=== PATIENT | female | born 1965 | race African-American/Black ===

== ENCOUNTER 2018-08-22 19:27 | Observation (INO) | payer OTHER ==
[2018-08-22] MEDS ORDERED: SODIUM CHLORIDE 0.9% 500 ML 500 ML IV STA (20:51)
[2018-08-22] MEDS ORDERED: LABETALOL 5 MG/ML VIAL MDV IVP STA ×2 (21:33→23:05)
--- NOTE | 2018-08-22 21:34 | ED ---
General Adult HPI - General Source: patient Mode of arrival: ambulatory Limitations: no limitations <Daneyll Drake - Last Filed: 08/23/18 01:03> <Sunitha Krishnan - Last Filed: 08/28/18 02:51> - General Chief complaint: ENT Stated complaint: Lt arm pain-[facility] Time Seen by Provider: 08/22/18 20:00 - History of Present Illness Initial comments: 53-year-old female patient presents to the emergency department today for evaluation of left upper arm pain and throat pain. Patient states that she has had the left upper arm pain intermittently over the last couple of days. States this pain is not related to exertion or use of the arm. States that today she woke up and she was having a discomfort in her throat. States it feels different when it sore from illness. She denies any cough or nasal congestion. She denies any chest pain, shortness of breath, nausea, vomiting, or sweats. Patient does have elevated blood pressure at triage, states that she has no history of high blood pressure. She has family history of coronary artery disease, both parents are now after cardiac events one at age 23 , the other 56. She denies any use of cigarettes. Patient denies any recent rash, fever, chills, abdominal pain, diarrhea, constipation, back pain, numbness , tingling, dizziness, weakness, hematuria, dysuria, urinary urgency, urinary frequency, headache, visual changes, or any other complaints. (Danyell Drake) - Related Data Allergies Allergy/AdvReac Type Severity Reaction Status Date / Time No Known Allergies Allergy Verified 08/23/18 08:57 Review of Systems ROS Other: All systems not noted in ROS Statement are negative. <Danyell Drake - Last Filed: 08/23/18 01:03> ROS Other: All systems not noted in ROS Statement are negative. <Sunitha Krishnan - Last Filed: 08/28/18 02:51> ROS Statement: Those systems with pertinent positive or pertinent negative responses have been documented in the HPI. Past Medical History Past Medical History: No Reported History History of Any Multi-Drug Resistant Organisms: None Reported Past Surgical History: No Surgical Hx Reported Past Psychological History: No Psychological Hx Reported Smoking Status: Never smoker Past Alcohol Use History: None Reported Past Drug Use History: Unable to Obtain <BantleDanyell M - Last Filed: 08/23/18 01:03> General Exam Limitations: no limitations General appearance: alert, in no apparent distress, other (Physical well- developed, well-nourished adult female patient in no acute distress. Vital signs upon presentation temperature 98.2F, pulse 93, respirations 18, blood pressure 182/125, pulse ox 100% on room air.) Eye exam: Present: normal appearance, PERRL, EOMI. Absent: scleral icterus, conjunctival injection, periorbital swelling ENT exam: Present: normal exam, normal oropharynx, mucous membranes moist Respiratory exam: Present: normal lung sounds bilaterally. Absent: respiratory distress, wheezes, rales, rhonchi, stridor Cardiovascular Exam: Present: regular rate, normal rhythm, normal heart sounds. Absent: systolic murmur, diastolic murmur, rubs, gallop, clicks GI/Abdominal exam: Present: soft, normal bowel sounds. Absent: distended, tenderness, guarding, rebound, rigid Neurological exam: Present: alert, oriented X3, CN II-XII intact Psychiatric exam: Present: normal affect, normal mood Skin exam: Present: warm, dry, intact, normal color. Absent: rash <RemediosJuarez williamsonina M - Last Filed: 08/23/18 01:03> Vital Signs 08/22/18 08/22/18 08/22/18 19:34 21:28 21:53 Temperature 98.2 F Pulse Rate 93 96 79 Respiratory 18 16 16 Rate Blood Pressure 182/125 203/118 194/110 Blood Pressure [Left Arm] O2 Sat by Pulse 100 100 98 Oximetry 08/22/18 08/22/18 08/22/18 22:13 22:41 23:28 Temperature Pulse Rate 81 74 75 Respiratory 15 15 15 Rate Blood Pressure 200/121 189/105 188/119 Blood Pressure [Left Arm] O2 Sat by Pulse 100 100 100 Oximetry 08/22/18 08/23/18 08/23/18 23:36 00:00 00:14 Temperature Pulse Rate 81 79 72 Respiratory 15 15 18 Rate Blood Pressure 156/102 174/112 172/103 Blood Pressure [Left Arm] O2 Sat by Pulse 100 100 100 Oximetry 08/23/18 08/23/18 08/23/18 01:50 02:23 03:40 Temperature 98.0 F Pulse Rate 90 79 Respiratory 16 20 Rate Blood Pressure 174/114 151/103 176/113 Blood Pressure [Left Arm] O2 Sat by Pulse 99 100 Oximetry 08/23/18 08/23/18 08/23/18 03:50 04:00 04:10 Temperature Pulse Rate 78 73 79 Respiratory Rate Blood Pressure 174/113 174/113 164/111 Blood Pressure [Left Arm] O2 Sat by Pulse 99 98 99 Oximetry 08/23/18 08/23/18 08/23/18 04:20 04:27 04:30 Temperature 98.8 F Pulse Rate 90 Respiratory 14 Rate Blood Pressure 180/115 180/115 Blood Pressure 185/113 [Left Arm] O2 Sat by Pulse 96 99 Oximetry 08/23/18 04:40 Temperature Pulse Rate 74 Respiratory Rate Blood Pressure 180/115 Blood Pressure [Left Arm] O2 Sat by Pulse 98 Oximetry EKG Findings - EKG Comments: EKG Findings:: EKG obtained at 2108 shows normal sinus rhythm with a sinus arrhythmia, nonspecific T-wave abnormality. Ventricular rate is 80, HI interval 150, QRS duration 80, QT 378, QTC 435. No evidence of ST elevation or depression. No previous EKGs on file for comparison. <Danyell Drake - Last Filed: 08/23/18 01:03> Medical Decision Making - Lab Data Result diagrams: 08/22/18 21:18 08/22/18 21:18 - Radiology Data Radiology results: report reviewed, image reviewed <Danyell Drake - Last Filed: 08/23/18 01:03> - Lab Data Result diagrams: 08/22/18 21:18 08/24/18 04:36 <Sunitha Krishnan - Last Filed: 08/28/18 02:51> - Medical Decision Making 53-year-old female patient presented to the emergency department today for evaluation of left arm and neck pain. Patient has had this pain intermittently over the last couple of days. Physical examination is unremarkable. Patient was quite hypertensive in the ER with blood pressure as high as 203/118. She was given multiple doses of labetalol and a dose of hydralazine, blood pressure is minimally improved. Patient does have extensive family history of coronary artery disease and cardiac . Given family history and elevated blood pressure does felt she would benefit from inpatient admission for cardiology evaluation especially since she does not have a primary care physician for follow-up. I did discuss findings and results with the patient. My attending Dr. Krishnan did speak to the son physician on-call who accepts admission. (Danyell Drake) I was available for consultation in the emergency department. The history and physical exam were done by the midlevel provider. I was consulted for this patient's care. I reviewed the case with the midlevel provider and based on their presentation of the patient, I agree with the assessment, medical decision making and plan of care as documented. (Sunitha Krishnan) - Lab Data Lab Results 08/22/18 08/22/18 08/22/18 Range/Units 21:18 21:18 21:18 WBC 5.5 (3.8-10.6) k/uL RBC 4.29 (3.80-5.40) m/uL Hgb 13.0 (11.4-16.0) gm/dL Hct 41.7 (34.0-46.0) % MCV 97.1 (80.0-100.0) fL MCH 30.2 (25.0-35.0) pg MCHC 31.1 (31.0-37.0) g/dL RDW 13.1 (11.5-15.5) % Plt Count 233 (150-450) k/uL Neutrophils % 40 % Lymphocytes % 49 % Monocytes % 7 % Eosinophils % 2 % Basophils % 1 % Neutrophils # 2.2 (1.3-7.7) k/uL Lymphocytes # 2.7 (1.0-4.8) k/uL Monocytes # 0.4 (0-1.0) k/uL Eosinophils # 0.1 (0-0.7) k/uL Basophils # 0.0 (0-0.2) k/uL PT (9.0-12.0) sec INR (<1.2) APTT (22.0-30.0) sec Sodium 143 (137-145) mmol/L Potassium 4.1 (3.5-5.1) mmol/L Chloride 109 H (98-107) mmol/L Carbon Dioxide 24 (22-30) mmol/L Anion Gap 10 mmol/L BUN 14 (7-17) mg/dL Creatinine 1.01 (0.52-1.04) mg/dL Est GFR (CKD-EPI)AfAm 75 (>60 ml/min/1.73 sqM) Est GFR (CKD-EPI)NonAf 65 (>60 ml/min/1.73 sqM) Glucose 99 (74-99) mg/dL Calcium 10.8 H (8.4-10.2) mg/dL Magnesium 2.2 (1.6-2.3) mg/dL Total Bilirubin 0.7 (0.2-1.3) mg/dL AST 47 H (14-36) U/L ALT 59 H (9-52) U/L Alkaline Phosphatase 78 (38-126) U/L Total Creatine Kinase 146 H (30-135) U/L CK-MB (CK-2) 1.2 (0.0-2.4) ng/mL CK-MB (CK-2) Rel Index 0.8 Troponin I <0.012 (0.000-0.034) ng/mL Total Protein 8.4 H (6.3-8.2) g/dL Albumin 4.5 (3.5-5.0) g/dL 08/22/18 Range/Units 21:18 WBC (3.8-10.6) k/uL RBC (3.80-5.40) m/uL Hgb (11.4-16.0) gm/dL Hct (34.0-46.0) % MCV (80.0-100.0) fL MCH (25.0-35.0) pg MCHC (31.0-37.0) g/dL RDW (11.5-15.5) % Plt Count (150-450) k/uL Neutrophils % % Lymphocytes % % Monocytes % % Eosinophils % % Basophils % % Neutrophils # (1.3-7.7) k/uL Lymphocytes # (1.0-4.8) k/uL Monocytes # (0-1.0) k/uL Eosinophils # (0-0.7) k/uL Basophils # (0-0.2) k/uL PT 10.2 (9.0-12.0) sec INR 0.9 (<1.2) APTT 25.3 (22.0-30.0) sec Sodium (137-145) mmol/L Potassium (3.5-5.1) mmol/L Chloride (98-107) mmol/L Carbon Dioxide (22-30) mmol/L Anion Gap mmol/L BUN (7-17) mg/dL Creatinine (0.52-1.04) mg/dL Est GFR (CKD-EPI)AfAm (>60 ml/min/1.73 sqM) Est GFR (CKD-EPI)NonAf (>60 ml/min/1.73 sqM) Glucose (74-99) mg/dL Calcium (8.4-10.2) mg/dL Magnesium (1.6-2.3) mg/dL Total Bilirubin (0.2-1.3) mg/dL AST (14-36) U/L ALT (9-52) U/L Alkaline Phosphatase (38-126) U/L Total Creatine Kinase (30-135) U/L CK-MB (CK-2) (0.0-2.4) ng/mL CK-MB (CK-2) Rel Index Troponin I (0.000-0.034) ng/mL Total Protein (6.3-8.2) g/dL Albumin (3.5-5.0) g/dL - Radiology Data Two-view x-ray of the chest is obtained. Heart media's enema normal. Lungs are clear. Diaphragm is normal. Bony thorax is normal. There are chest leads. Impression by Dr. Osborn shows normal chest. (Danyell Drake) Disposition Decision to Admit Reason: Admit from EC Decision Date: 08/23/18 Decision Time: 01:11 <Danyell Drake - Last Filed: 08/23/18 01:03> <Sunitha Krishnan - Last Filed: 08/28/18 02:51> Clinical Impression: Hypertensive emergency, Anginal equivalent Disposition: ADMITTED IP TO THIS [facility] Condition: Good
[2018-08-22 21:41] LABS: INR 0.9 (<1.2); Partial Thromboplastin Time 25.3 sec (22.0-30.0); Prothrombin Time 10.2 sec (9.0-12.0)
[2018-08-22 21:43] LABS: Albumin 4.5 g/dL (3.5-5.0); Calcium 10.8 mg/dL (8.4-10.2); Magnesium 2.2 mg/dL (1.6-2.3); Potassium 4.1 mmol/L (3.5-5.1); Total Bilirubin 0.7 mg/dL (0.2-1.3); Total Protein 8.4 g/dL (6.3-8.2)
[2018-08-22 22:08] LABS: Creatine Kinase 146 U/L (30-135)
[2018-08-22 22:19] LABS: Creatine Kinase MB 1.2 ng/mL (0.0-2.4); Troponin I <0.012 ng/mL (0.000-0.034)
--- NOTE | 2018-08-22 22:28 | XR ---
EXAMINATION TYPE: XR chest 2V DATE OF EXAM: 08/22/2018 COMPARISON: NONE HISTORY: Left arm pain TECHNIQUE: Frontal and lateral views of the chest are obtained. FINDINGS: Heart and mediastinum are normal. Lungs are clear. Diaphragm is normal. Bony thorax is nor mal. There are chest leads. IMPRESSION: Normal chest
[2018-08-22 22:32] LABS: Basophils % (A) 1 %; Eosinophils # (A) 0.1 k/uL (0-0.7); Eosinophils % (A) 2 %; HCT 41.7 % (34.0-46.0); Lymphocytes # (A) 2.7 k/uL (1.0-4.8); Lymphocytes % (A) 49 %; MCH 30.2 pg (25.0-35.0); MCHC 31.1 g/dL (31.0-37.0); MCV 97.1 fL (80.0-100.0); Mean Platelet Volume 6.2; Monocytes # (A) 0.4 k/uL (0-1.0); Monocytes % (A) 7 %; Neutrophils # (A) 2.2 k/uL (1.3-7.7); Neutrophils % (A) 40 %; Platelet Count 233 k/uL (150-450); RBC 4.29 m/uL (3.80-5.40); RDW 13.1 % (11.5-15.5); WBC 5.5 k/uL (3.8-10.6)
[2018-08-23] MEDS ORDERED: hydrALAZINE HCL 20 MG/ML 1 ML VIAL IVP STA (00:09)
[2018-08-23] MEDS ORDERED: NITROGLYCERIN SL TABS 0.4 MG TAB SUBLINGUAL PRN (01:12)
[2018-08-23] MEDS ORDERED: ENALAPRILAT 1.25 MG/ML 1 ML VIAL IVP PRN (01:15)
[2018-08-23 03:59] LABS: Creatine Kinase 134 U/L (30-135)
[2018-08-23 04:12] LABS: Troponin I <0.012 ng/mL (0.000-0.034)
[2018-08-23 05:15] LABS: Glucose,Whole Blood 91 mg/dL (75-99)
[2018-08-23 05:24] VITALS: BMI 35.7
[2018-08-23] MEDS ORDERED: NALOXONE 0.4 MG/ML 1 ML VIAL IV PRN (06:48)
--- NOTE | 2018-08-23 06:59 | P.HPIM ---
History of Present Illness H&P Date: 08/23/18 Chief Complaint: chocking sensation 53-year-old female with no significant past medical history Patient presented to the hospital due to choking sensation in her throat that she woke up feeling it. She also reported couple day history of discomfort in her left arm not related to any activity, denies any trauma. Patient otherwise denies any other symptoms. She denies any symptoms of upper respiratory infection denies any fevers or chills denies any similar symptoms in the past denies any chest pain or trouble breathing denies any nausea vomiting dizziness lightheadedness denies any focal neurologic deficits. In the ED she was found to have elevated blood pressure with systolic in the 200 range. She has strong family history of premature cardiac disease. She was admitted for blood pressure management and cardiac monitoring Review of Systems Pertinent positives as noted in HPI. All other systems were reviewed and are negative Past Medical History Past Medical History: No Reported History History of Any Multi-Drug Resistant Organisms: None Reported Past Surgical History: No Surgical Hx Reported Past Psychological History: No Psychological Hx Reported Smoking Status: Never smoker Past Alcohol Use History: None Reported Past Drug Use History: Unable to Obtain Medications and Allergies Allergies Allergy/AdvReac Type Severity Reaction Status Date / Time No Known Allergies Allergy Verified 08/22/18 19:34 Physical Exam Vitals: Vital Signs Temp Pulse Resp BP BP Pulse Ox 08/23/18 06:40 68 7 L 147/85 08/23/18 06:20 74 7 L 149/85 08/23/18 06:00 76 14 198/120 08/23/18 05:40 73 12 198/120 08/23/18 05:20 73 9 L 185/113 08/23/18 05:10 79 17 185/113 08/23/18 05:02 82 32 H 08/23/18 04:40 74 180/115 98 08/23/18 04:30 90 180/115 99 08/23/18 04:27 98.8 F 14 185/113 96 08/23/18 04:20 180/115 08/23/18 04:10 79 164/111 99 08/23/18 04:00 73 174/113 98 08/23/18 03:50 78 174/113 99 08/23/18 03:40 79 20 176/113 100 08/23/18 02:23 151/103 08/23/18 01:50 98.0 F 90 16 174/114 99 08/23/18 00:14 72 18 172/103 100 08/23/18 00:00 79 15 174/112 100 08/22/18 23:36 81 15 156/102 100 08/22/18 23:28 75 15 188/119 100 08/22/18 22:41 74 15 189/105 100 08/22/18 22:13 81 15 200/121 100 08/22/18 21:53 79 16 194/110 98 08/22/18 21:28 96 16 203/118 100 08/22/18 19:34 98.2 F 93 18 182/125 100 Intake and Output 08/22/18 08/22/18 08/23/18 14:59 22:59 06:59 Intake Total 600 Output Total 0 Balance 600 Intake: Amount of Fluid Infused ( 600 ml) Output: Urine 0 Other: Weight 97.522 kg 97.45 kg Constitutional: No acute distress, conversant, pleasant Eyes: Anicteric sclerae, moist conjunctiva, no lid-lag Pupils equal round reactive to light ENMT: NC/AT Oropharynx clear, no erythema, exudates Neck: Supple, FROM, no masses, or JVD No carotid bruits No thyromegaly Lungs: Clear to auscultation Clear to percussion Normal respiratory effort, no accessory muscle use Cardiovascular: Heart regular in rate and rhythm, No murmurs, gallops, or rubs No peripheral edema Abdominal: Soft Nontender, no guarding, rebound or rigidity Abdomen moving with respiration Normoactive bowel sounds No hepatomegaly, No splenomegaly No palpable mass No abdominal wall hernia noted Skin: Normal temperature, tone, texture, turgor No induration No subcutaneous nodules No rash, lesions No ulcers Extremities: Pain in the left arm is not reproducible by palpation there is no visible abnormalities, range of motion is intact No digital cyanosis No clubbing Pedal pulses intact and symmetrical Radial pulses intact and symmetrical No calf tenderness Psychiatric: Alert and oriented to person, place and time Appropriate affect fair judgment Neuro Muscles Strength 5/5 in all 4 extremities Sensation to light touch grossly present throughout Cranial nerves II-XII grossly intact No focal sensory deficits Lymphatics: no palpable cervical or supraclavicular , or inguinal lymph nodes Results CBC & Chem 7: 08/22/18 21:18 08/22/18 21:18 Labs: Abnormal Lab Results - Last 24 Hours (Table) 08/22/18 08/22/18 Range/Units 21:18 21:18 Chloride 109 H (98-107) mmol/L Calcium 10.8 H (8.4-10.2) mg/dL AST 47 H (14-36) U/L ALT 59 H (9-52) U/L Total Creatine Kinase 146 H (30-135) U/L Total Protein 8.4 H (6.3-8.2) g/dL Thrombosis Risk Factor Assmnt - Choose All That Apply Any of the Below Risk Factors Present?: Yes Each Factor Represents 1 point: Age 41-60 years, Obesity (BMI >25) Other Risk Factors: No Other congenital or acquired thrombophilia - If yes, enter type in comment: No Thrombosis Risk Factor Assessment Total Risk Factor Score: 2 Thrombosis Risk Factor Assessment Level: Low Risk Assessment and Plan Assessment: 53-year-old female no significant past medical history admitted as observationwith anticipated length of stay last than 2 days due to hypertensive urgency.patient initially presented due to choking sensation was found to have for high blood pressure systolic in the 200s range. Plan: Hypertensive urgency Currently asymptomatic Blood pressure control target to lower MAP by 25% Start amlodipine and chlorthalidone in a.m. Cardiac monitoring Cardiac enzyme trending EKG unremarkable Hypercalcemia Asymptomatic Follow-up calcium level Check PTH Obesity Counseled left somewhat patient weight loss DVT prophylaxis heparin subcu 3 times a day Surrogate decision-maker: Patient's son CODE STATUS:*Full code Discussed with: Patient, ER, RN Anticipated discharge: Less than [address]: Home A total of *60* minutes was spent on the care of this complex patient more than 50% of the time was spent in counseling and care coordination.
[2018-08-23] MEDS: HEPARIN SODIUM,PORCINE 5,000 UNIT/ML 1 ML VIAL SQ SCH ×2 (08:22→17:41)
[2018-08-23] MEDS ORDERED: METOPROLOL TARTRATE 25 MG TAB PO SCH ×2 (09:00)
[2018-08-23] MEDS ORDERED: amLODIPine 10 MG TAB PO SCH (09:00)
[2018-08-23] MEDS ORDERED: LOSARTAN 50 MG TAB PO SCH (09:00)
[2018-08-23] MEDS ORDERED: CHLORTHALIDONE 25 MG TAB PO SCH (09:00)
[2018-08-23] MEDS ORDERED: LABETALOL 5 MG/ML VIAL MDV IVP PRN (09:04)
[2018-08-23] MEDS ORDERED: cloNIDine HCL 0.2 MG TAB PO STA (09:10)
[2018-08-23] MEDS ORDERED: LABETALOL 5 MG/ML VIAL MDV IVP STA (09:11)
[2018-08-23] MEDS: ASPIRIN 81 MG PO SCH (09:20)
[2018-08-23 10:15] LABS: Anion Gap 9 mmol/L; Blood Urea Nitrogen 11 mg/dL (7-17); Calcium 10.4 mg/dL (8.4-10.2); Carbon Dioxide 22 mmol/L (22-30); Chloride 112 mmol/L (98-107); Glucose 107 mg/dL (74-99); Potassium 4.4 mmol/L (3.5-5.1); Sodium 143 mmol/L (137-145)
[2018-08-23 10:26] LABS: Creatine Kinase 118 U/L (30-135)
[2018-08-23 10:39] LABS: Troponin I <0.012 ng/mL (0.000-0.034)
[2018-08-23 11:40] LABS: Appearance,Urine Clear (Clear); Bacteria,Urine Few /hpf; Bilirubin,Urine Negative (Negative); Blood,Urine Negative (Negative); Color,Urine Light Yellow; Glucose,Urine (UA) Negative (Negative); Ketones,Urine Negative (Negative); Leukocyte Esterase,Urine Moderate (Negative); Nitrite,Urine Negative (Negative); PH, Urine 7.5 (5.0-8.0); Protein,Urine Negative (Negative); RBC,Urine <1 /hpf (0-5); Specific Gravity,Urine 1.006 (1.001-1.035); Squamous Epithelial Cell,Urine <1 /hpf (0-4); Urobilinogen,Urine <2.0 mg/dL (<2.0); WBC,Urine 3 /hpf (0-5)
--- NOTE | 2018-08-23 11:50 | US ---
EXAMINATION TYPE: US kidneys/renal and bladder DATE OF EXAM: 08/23/2018 COMPARISON: NONE CLINICAL HISTORY: hypertension . HTN EXAM MEASUREMENTS: Right Kidney: 9.7 x 4.7 x 4.3 cm Left Kidney: 9.7 x 5.0 x 4.9 cm Right Kidney: no hydronephrosis or masses seen Left Kidney: no hydronephrosis or masses seen Bladder: wnl Bilateral Jets seen: yes IMPRESSION: NORMAL RENAL ULTRASOUND.
--- NOTE | 2018-08-23 14:14 | CONS ---
CONSULTATION Mrs. Helga Porter is a lady who does not take any medications on a regular basis. She has not seen a physician recently. 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 She came into the hospital mainly with complaints of having left arm and some throat discomfort. She called it as a feeling of tightness that she has had in the past. This is not exertion related symptoms. She does quite a bit of physical work. She works out every day. This is uncomfortable feeling in the throat and some left arm achy feeling. With these nondescript symptoms, she came in, but her blood pressure was quite elevated. She has been admitted to the hospital with a diagnosis of accelerated hypertension. Her pressure is still elevated when I saw her. She has no chest pain, shortness of breath or palpitation. She does not take any regular medications and has no allergies. PHYSICAL EXAMINATION: Blood pressure is 180/110, pulse rate is about 70 per minute regular HEENT unremarkable. Fundus was not examined by me. Neck is supple. No JVD. I do not hear a carotid bruit. Heart exam reveals S1, S2 heard normally without a rub murmur or gallop. Lungs are clear. Abdomen is soft, nontender. Lower extremities reveal normal pulses. No edema. Central nervous system is normal. EKG revealed a sinus mechanism with voltage criteria for LVH and nonspecific ST wave abnormality. LABORATORY DATA: Reveals that all 3 troponin levels are normal. Renal function is normal and hemoglobin is normal. IMPRESSION: 1. Accelerated hypertension. 2. Obesity. 3. Atypical pain in her throat and also left arm. RECOMMENDATIONS: I will 1st optimize blood pressure control. I am recommending that we decrease the aspirin to 81 mg daily, add losartan 100 mg daily, Lopressor 25 mg b.i.d., Norvasc will be 5 mg b.i.d. If the blood pressure remains high, I will give her labetalol 10 mg IV push and clonidine 0.2 mg p.o. b.i.d., perform echocardiogram tomorrow and based on the findings I will make further recommendations. I discussed my thoughts in detail with the patient. Thank you very much for the consult. MMODL / IJN: [id number] /
[2018-08-23] MEDS ORDERED: SODIUM CHLORIDE 0.9% 500 ML 500 ML IV ONE (15:00)
--- NOTE | 2018-08-23 15:00 | P.PN ---
Progress Note - Text Patient was seen and examined by me today. She was admitted to the hospital with hypertensive urgency. She is not known to have any diagnosis of essential hypertension in the past. She was admitted to the hospital and for an unclear reason to me she was started on 5 different medications for her blood pressure with maximum doses including losartan 100 mg, amlodipine 10 mg, clonidine 0.2 mg twice daily, chlorthalidone 25 mg, and metoprolol 25 mg twice daily. She also received IV labetalol and hydralazine in the emergency room. Her blood pressure bottomed from 200 systolic to 80 at this time. Patient is feeling fairly well and denies any dizziness or lightheadedness. I will go ahead and discontinue all of these blood pressure medication and keep her only on losartan 25 and chlorthalidone to be started tomorrow depending on her blood pressure trends throughout the day. We will give her one time bolus of 0.9 500 mL. Plan of care discussed with nursing staff.
[2018-08-23] MEDS ORDERED: cloNIDine HCL 0.2 MG TAB PO SCH (21:00)
[2018-08-23] MEDS ORDERED: amLODIPine 5 MG TAB PO SCH (21:00)
[2018-08-24] MEDS: HEPARIN SODIUM,PORCINE 5,000 UNIT/ML 1 ML VIAL SQ SCH ×2 (00:14→11:11)
[2018-08-24] MEDS ORDERED: ACETAMINOPHEN TAB 325 MG TAB PO PRN (00:22)
[2018-08-24 06:17] LABS: Calcium 10.3 mg/dL (8.4-10.2); Potassium 4.4 mmol/L (3.5-5.1)
[2018-08-24] MEDS ORDERED: ASPIRIN 325 MG TAB PO SCH (09:00)
[2018-08-24] MEDS ORDERED: LABETALOL 100 MG TAB PO SCH ×2 (09:00→10:00)
[2018-08-24] MEDS: ASPIRIN 81 MG PO SCH (11:11)
[2018-08-24 11:23] VITALS: RESP 15
[2018-08-24 12:04] VITALS: BP 118/82; PULSE 83; TEMP 98.1
--- NOTE | 2018-08-24 12:05 | ECHOF ---
Referral Reason:hypertensive emergency MEASUREMENTS -------- HEIGHT: 165.1 cm WEIGHT: 97.1 kg BP: 111/80 RVIDd: 3.0 cm (< 3.3) IVSd: 1.2 cm (0.6 - 1.1) LVIDd: 4.5 cm (3.9 - 5.3) LVPWd: 1.1 cm (0.6 - 1.1) IVSs: 1.7 cm LVIDs: 3.1 cm LVPWs: 1.6 cm LA Diam: 3.4 cm (2.7 - 3.8) LAESV Index (A-L): 27.21 ml/m Ao Diam: 3.0 cm (2.0 - 3.7) AV Cusp: 2.2 cm (1.5 - 2.6) MV EXCURSION: 11.540 mm (> 18.000) MV EF SLOPE: 65 mm/s (70 - 150) EPSS: 0.7 cm MV E Ramiro: 0.58 m/s MV DecT: 261 ms MV A Ramiro: 0.77 m/s MV E/A Ratio: 0.76 RAP: 5.00 mmHg RVSP: 25.25 mmHg FINDINGS -------- Sinus rhythm. This was a technically good study. The left ventricular size is normal. There is borderline concentric left ventricular hypertrophy. Overall left ventricular systolic function is normal with, an EF between 60 - 65 %. The right ventricle is normal in size. Normal LA size by volume 22+/-6 ml/m2. The right atrium is normal in size. The aortic valve is trileaflet and appears structurally normal. There is trace mitral regurgitation. Mild tricuspid regurgitation present. Right ventricular systolic pressure is normal at < 35 mmHg. Trace/mild (physiologic) pulmonic regurgitation. The aortic root size is normal. Normal inferior vena cava with normal inspiratory collapse consistent with estimated right atrial pre ssure of 5 mmHg. There is no pericardial effusion. CONCLUSIONS -------- 1. Sinus rhythm. 2. This was a technically good study. 3. The left ventricular size is normal. 4. There is borderline concentric left ventricular hypertrophy. 5. Overall left ventricular systolic function is normal with, an EF between 60 - 65 %. 6. The right ventricle is normal in size. 7. Normal LA size by volume 22+/-6 ml/m2. 8. The right atrium is normal in size. 9. The aortic valve is trileaflet and appears structurally normal. 10. There is trace mitral regurgitation. 11. Mild tricuspid regurgitation present. 12. Right ventricular systolic pressure is normal at < 35 mmHg. 13. Trace/mild (physiologic) pulmonic regurgitation. 14. The aortic root size is normal. 15. Normal inferior vena cava with normal inspiratory collapse consistent with estimated right atrial pressure of 5 mmHg. 16. There is no pericardial effusion. PRINTER HELPER: Maritza Velasquez RDCS
--- NOTE | 2018-08-24 14:04 | P.DS ---
Providers Date of admission: 08/23/18 01:46 Expected date of discharge: 08/24/18 Attending physician: Dillon Antonio MD Consults: 08/23/18 01:12 Consult Physician Urgent Consulting Provider: [facility] Consult Reason/Comments: Hypertensive emergency; Anginal Equivalent Do you want consulting provider notified?: Yes Primary care physician: Stated None Hospital Course: Discharge Diagnosis: 1. Hypertensive urgency 2. Possible primary hyperparathyroidism with hypercalcemia 3. Obesity BMI 35.7 Hospital Course: Patient is a 53-year-old -[place] female with no significant past medical history no primary care physician who presented to the ER after waking up feeling a choking sensation in her throat. This was associated with discomfort in her left arm not related to activity. On arrival to the ER she was found have significantly elevated systolic blood pressures of 203 and diastolic blood pressure of 118. She is admitted for management of her hypertensive urgency. Troponin was trended and was negative. EKG was nonischemic. She seen by cardiology and medication adjustments were made. She did have an episode of hypotension requiring fluid bolus and medications were readjusted. Echocardiogram was unremarkable. She was noted to have elevated calcium level on admission of 10.8. This improved to 10.3 with fluids. Her PTH was elevated at 118. I have called and made her appointment with Dr. Palmer on September 24 at 2:30 PM. She will also follow-up with Dr. Cox is a new PCP. She'll follow with Dr. JEFFREY Palmer of cardiology. She was discharged home on 50 of labetalol once daily and Norvasc 2.5 twice daily. She was told not to resume her exercise unless her systolic blood pressure is less than 140. She was also given information about hyperparathyroidism. She was instructed on the importance of follow-up. Patient seen and examined at bedside. Denies any chest pain, arm pain, shortness of breath. Has a slight headache is much improved from yesterday. Vital signs reviewed and stable. General: non toxic, no distress, appears at stated age Derm: warm, dry Head: atraumatic, normocephalic, symmetric Eyes: EOMI, no lid lag, anicteric sclera Mouth: no lip lesion, mucus membranes moist Cardiovascular: S1S2 reg, no murmur, positive posterior tibial pulse bilateral, Lungs: CTA bilateral, no rhonchi, no rales , no accessory muscle use Abdominal: soft, nontender to palpation, no guarding, no appreciable organomegaly Ext: no gross muscle atrophy, no edema, no contractures Neuro: CN II-XI grossly intact, no focal neuro deficits Psych: Alert, oriented, appropriate affect A total of 45 minutes of time were spent preparing this complex discharge summary . Pertinent Studies: Echocardiogram-ejection fraction 60-65%, borderline LVH Patient Condition at Discharge: Good Plan - Discharge Summary New Discharge Prescriptions: New amLODIPine [Norvasc] 2.5 mg PO BID #60 tab Aspirin 81 mg PO DAILY chew Labetalol [Trandate] 50 mg PO DAILY #30 tab Discharge Medication List Aspirin 81 mg PO DAILY chew 08/24/18 [Rx] Labetalol [Trandate] 50 mg PO DAILY #30 tab 08/24/18 [Rx] amLODIPine [Norvasc] 2.5 mg PO BID #60 tab 08/24/18 [Rx] Follow up Appointment(s)/Referral(s): Minesh Palmer MD [STAFF PHYSICIAN] - 2 Weeks Judy Cox MD [STAFF PHYSICIAN] - 1 Week None,Stated [Primary Care Provider] - 1-2 days Gabriela Palmer MD [REFERRING] - 09/24/18 2:30 am Ambulatory/Diagnostic Orders: Miscellaneous Lab Order [LAB.AMB] Time Frame: 2 Weeks, Location: None Selected Activity/Diet/Wound Care/Special Instructions: regular diet activity as tolerated Systolic blood pressure (top number) less than 140 prior to exercise Discharge Disposition: HOME SELF-CARE
--- NOTE | 2018-08-24 20:58 | PN ---
PROGRESS NOTE This lady has new-onset hypertension with accelerated hypertension. She is doing well. Blood pressure is excellent today. I will place her on labetalol 100 mg in the morning, Norvasc 2.5 mg daily, and on this regimen she can be moved to telemetry. Vitals are stable. She is asymptomatic. S1-S2 heard normally. Lungs are clear. Abdomen and lower extremity exam is unchanged. MMODL / IJN: [id number] /
[2018-08-24] MEDS ORDERED: amLODIPine 2.5 MG TAB PO SCH (21:00)
== END 2018-08-24 15:33 | disposition home or self-care (01) ==
LOC: EC 19:27 → INTOOBSV 08-23 01:46 → 2SICU 08-23 01:46 → UNDODISIN 08-24 15:33
PROVIDERS: ADMIT Internal Medicine; ATTEND Internal Medicine
DX: I16.1 Hypertensive emergency (principal); E83.52 Hypercalcemia; R94.6 Abnormal results of thyroid function studies; I10 Essential (primary) hypertension; I20.8 Other forms of angina pectoris; E66.9 Obesity, unspecified; Z68.35 Body mass index [BMI] 35.0-35.9, adult; Z82.49 Family history of ischemic heart disease and other diseases of the circulatory system; R07.0 Pain in throat; I95.9 Hypotension, unspecified
CPT/HCPCS: 96376 ×2; 96361 ×2; 96372 ×2; 96374; 96375; 99284 ×2; 36415 ×2; 93005; 93306; 80061; 80053; 80048 ×2; 82550 ×2; 82553 ×2; 83735; 84484 ×2; 85025; 85610; 85730; 81001; 83970; 71046; 76770; G0378 ×2; J0360; J1644 ×2

== ENCOUNTER → 2018-09-18 | Outpatient (CLI) | payer OTHER ==
[2018-09-18 17:48] LABS: Anion Gap 8.6 mmol/L (4.00-12.00); Carbon Dioxide 25.4 mmol/L (21.6-31.8); Potassium 4.7 mmol/L (3.5-5.5)
== END | disposition home or self-care (01) ==
LOC: LABWHC1 10:35
PROVIDERS: ATTEND Internal Medicine Interventional Cardiology
DX: I10 Essential (primary) hypertension (principal)
CPT/HCPCS: 36415; 80048

== ENCOUNTER → 2018-09-23 | Outpatient (CLI) | payer OTHER ==
[2018-09-23 16:41] LABS: Anion Gap 6.5 mmol/L (4.00-12.00); Calcium 9.8 mg/dL (8.7-10.3); Carbon Dioxide 25.5 mmol/L (21.6-31.8); Potassium 4.4 mmol/L (3.5-5.5)
== END | disposition home or self-care (01) ==
LOC: LABWHC1 10:32
PROVIDERS: ATTEND Internal Medicine Interventional Cardiology
DX: I10 Essential (primary) hypertension (principal)
CPT/HCPCS: 36415; 80048

== ENCOUNTER 2021-08-22 10:20 | Emergency (ER) | payer OTHER ==
[2021-08-22 10:27] VITALS: TEMP 98.5
[2021-08-22 11:15] LABS: Basophils % (A) 1 %; Eosinophils # (A) 0.1 k/uL (0-0.7); Eosinophils % (A) 2 %; HCT 44.6 % (34.0-46.0); HGB 14.8 gm/dL (11.4-16.0); Lymphocytes % (A) 19 %; MCH 32.5 pg (25.0-35.0); MCHC 33.1 g/dL (31.0-37.0); MCV 98.1 fL (80.0-100.0); Mean Platelet Volume 7.2; Monocytes # (A) 0.3 k/uL (0-1.0); Monocytes % (A) 6 %; Neutrophils # (A) 3.9 k/uL (1.3-7.7); Neutrophils % (A) 70 %; Platelet Count 241 k/uL (150-450); RBC 4.55 m/uL (3.80-5.40); WBC 5.6 k/uL (3.8-10.6)
[2021-08-22] MEDS ORDERED: SODIUM CHLORIDE 0.9% 1,000 ML IV STA (11:25)
[2021-08-22] MEDS ORDERED: diphenhydrAMINE 50 MG/ML 1 ML VIAL IVP STA (11:25)
[2021-08-22] MEDS ORDERED: ONDANSETRON 4 MG/2 ML VIAL IVP STA (11:25)
[2021-08-22] MEDS ORDERED: KETOROLAC 15 MG/ML 1 ML VIAL IVP STA ×2 (11:30→11:37)
[2021-08-22] MEDS ORDERED: KETOROLAC 30 MG/ML 1 ML VIAL IVP STA (11:30)
--- NOTE | 2021-08-22 11:33 | ED ---
General Adult HPI - General Chief complaint: Syncope Stated complaint: Hypertensive, syncope Time Seen by Provider: 08/22/21 10:31 Source: patient Mode of arrival: ambulatory Limitations: no limitations - History of Present Illness Initial comments: Dictation was produced using [employer] dictation software. please excuse any grammatical, word or spelling errors. Chief Complaint: 56-year-old female past medical history hypertension presents to the emergency department for sick episode History of Present Illness: Patient's 56-year-old female she was redirected to us from the urgent care for syncope. Patient is syncopal episode yesterday. States that she was getting on the toilet 1 AM when she syncopized. Patient not sure if she fell to the ground. All auscultation is been having headache and sore throat. Patient states she has a history of headache. Denies that this is worsening of her life. Denies thunderclap nature. Patient has no history of heart problems. Patient states that at the bedside she has a mild sore throat and cough. The ROS documented in this emergency department record has been reviewed and confirmed by me. Those systems with pertinent positive or negative responses have been documented in the HPI. All other systems are other negative and/or noncontributory. PHYSICAL EXAM: General Impression: Alert and oriented x3, not in acute distress HEENT: Normocephalic atraumatic, extra-ocular movements intact, pupils equal and reactive to light bilaterally, mucous membranes moist. Cardiovascular: Heart regular rate and rhythm Chest: Able to complete full sentences, no retractions, no tachypnea Abdomen: abdomen soft, non-tender, non-distended, no organomegaly Musculoskeletal: Pulses present and equal in all extremities, no peripheral edema Motor: no focal deficits noted Neurological: CN II-XII grossly intact, no focal motor or sensory deficits noted, negative Brudzinski and negative Kernig's negative limits Skin: Intact with no visualized rashes Psych: Normal affect and mood ED course: 56-year-old well-appearing female presents to the emergency department after episode of syncope. Patient has been having headache and sore throat. Vital signs upon arrival shows heart rate of 1:15, worse vital signs within acceptable limits. EKG is unremarkable. She denies any shortness of breath. Denies any chest pain. No cough. Labs unremarkable. Patient positive for COVID-19. Discussed Antibody fusion with patient she is agreeable.. . She is observed after monoclonal antibody fusion. Reevaluated the bedside and patient reports significant improvement of her headache. Patient be discharged. EKG interpretation: Ventricular rate 117, sinus tachycardia, WI interval 150, QRS 80, QTc 443. No WI prolongation, no QTC prolongation, no ST or T-wave changes noted. EKG compared to 08/22/2018 showing no changes. Overall, this EKG is unremarkable - Related Data Home Medications Medication Instructions Recorded Confirmed Metoprolol Tartrate [Lopressor] 25 mg PO DAILY 08/22/21 08/22/21 amLODIPine [Norvasc] 5 mg PO BID@1200,2100 08/22/21 08/22/21 cloNIDine HCL [Catapres] 0.2 mg PO BID@1200,2100 08/22/21 08/22/21 hydroCHLOROthiazide [Hydrodiuril] 25 mg PO DAILY 08/22/21 08/22/21 lisinopriL [Zestril] 5 mg PO BID 08/22/21 08/22/21 Allergies Allergy/AdvReac Type Severity Reaction Status Date / Time No Known Allergies Allergy Verified 08/22/21 11:16 Review of Systems ROS Statement: Those systems with pertinent positive or pertinent negative responses have been documented in the HPI. ROS Other: All systems not noted in ROS Statement are negative. Past Medical History Past Medical History: Hypertension History of Any Multi-Drug Resistant Organisms: None Reported Past Surgical History: No Surgical Hx Reported Past Psychological History: No Psychological Hx Reported Smoking Status: Never smoker Past Alcohol Use History: None Reported Past Drug Use History: Unable to Obtain General Exam Limitations: no limitations Course Vital Signs 08/22/21 08/22/21 08/22/21 10:24 10:40 12:59 Temperature 98.5 F Pulse Rate 109 H 115 H 101 H Respiratory 18 16 18 Rate Blood Pressure 137/98 146/101 140/107 O2 Sat by Pulse 100 99 98 Oximetry Medical Decision Making - Lab Data Result diagrams: 08/22/21 10:57 08/22/21 10:57 Lab Results 08/22/21 08/22/21 08/22/21 Range/Units 10:57 10:57 10:57 WBC 5.6 (3.8-10.6) k/uL RBC 4.55 (3.80-5.40) m/uL Hgb 14.8 (11.4-16.0) gm/dL Hct 44.6 (34.0-46.0) % MCV 98.1 (80.0-100.0) fL MCH 32.5 (25.0-35.0) pg MCHC 33.1 (31.0-37.0) g/dL RDW 13.0 (11.5-15.5) % Plt Count 241 (150-450) k/uL MPV 7.2 Neutrophils % 70 % Lymphocytes % 19 % Monocytes % 6 % Eosinophils % 2 % Basophils % 1 % Neutrophils # 3.9 (1.3-7.7) k/uL Lymphocytes # 1.0 (1.0-4.8) k/uL Monocytes # 0.3 (0-1.0) k/uL Eosinophils # 0.1 (0-0.7) k/uL Basophils # 0.0 (0-0.2) k/uL Sodium 137 (137-145) mmol/L Potassium 4.2 (3.5-5.1) mmol/L Chloride 104 (98-107) mmol/L Carbon Dioxide 24 (22-30) mmol/L Anion Gap 9 mmol/L BUN 12 (7-17) mg/dL Creatinine 1.09 H (0.52-1.04) mg/dL Est GFR (CKD-EPI)AfAm 67 (>60 ml/min/1.73 sqM) Est GFR (CKD-EPI)NonAf 58 (>60 ml/min/1.73 sqM) Glucose 148 H (74-99) mg/dL Calcium 10.5 H (8.4-10.2) mg/dL Coronavirus (PCR) Detected A (Not Detectd) Disposition Clinical Impression: COVID-19 Disposition: HOME SELF-CARE Condition: Fair Instructions (If sedation given, give patient instructions): Coronavirus Disease 2019 (COVID-19) Is patient prescribed a controlled substance at d/c from ED?: No Referrals: None,Stated [Primary Care Provider] - 1-2 days
[2021-08-22 11:35] LABS: Calcium 10.5 mg/dL (8.4-10.2)
[2021-08-22 11:52] LABS: Potassium 4.2 mmol/L (3.5-5.1)
[2021-08-22] MEDS ORDERED: KETOROLAC 30 MG/ML 1 ML VIAL IVP SCH (12:00)
[2021-08-22] MEDS ORDERED: SODIUM CHLORIDE 0.9% 50 ML IVPB ONE (12:30)
[2021-08-22] MEDS ORDERED: BAMLANIVIMAB (EUA) 700 MG, ETESEVIMAB (EUA) 1,400 MG in SODIUM CHLORIDE 0.9% 50 ML IVPB ONE (12:30)
[2021-08-22 14:52] VITALS: BP 136/94; PULSE 90; RESP 16
== END 2021-08-22 14:52 | disposition home or self-care (01) ==
LOC: EC 10:20
DX: U07.1 COVID-19 (principal); I10 Essential (primary) hypertension; Z79.899 Other long term (current) drug therapy
CPT/HCPCS: 36415; 93005; 80048; 85025; 87635; 99284; 96374; 96375 ×2; 96361; J1200; J2405; J1885; J3490

== ENCOUNTER 2023-03-11 10:36 | Emergency (ER) | payer OTHER ==
[2023-03-11 10:49] VITALS: RESP 16
--- NOTE | 2023-03-11 11:06 | ED ---
General Adult HPI - General Chief complaint: Wound/Laceration Stated complaint: Smashed Middle/Ringer finger in Safe at Work Time Seen by Provider: 03/11/23 10:54 Source: patient, RN notes reviewed Mode of arrival: ambulatory Limitations: no limitations - History of Present Illness Initial comments: 57-year-old -[place] female with no significant past medical history presents to the emergency department with a chief complaint of finger pain. 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 She is complaining of third and fourth digit pain to the right hand she did not take anything prior to arrival for pain She denies any numbness, denied, with denies anticoagulant use - Related Data Home Medications Medication Instructions Recorded Confirmed Metoprolol Tartrate [Lopressor] 25 mg PO DAILY 08/22/21 08/22/21 amLODIPine [Norvasc] 5 mg PO BID@1200,2100 08/22/21 08/22/21 cloNIDine HCL [Catapres] 0.2 mg PO BID@1200,2100 08/22/21 08/22/21 hydroCHLOROthiazide [Hydrodiuril] 25 mg PO DAILY 08/22/21 08/22/21 lisinopriL [Zestril] 5 mg PO BID 08/22/21 08/22/21 Previous Rx's Medication Instructions Recorded Cephalexin [Keflex] 500 mg PO Q6HR #40 cap 03/11/23 Ibuprofen [Motrin] 800 mg PO Q6HR #30 tab 03/11/23 Allergies Allergy/AdvReac Type Severity Reaction Status Date / Time No Known Allergies Allergy Verified 03/11/23 10:47 Review of Systems ROS Statement: Those systems with pertinent positive or pertinent negative responses have been documented in the HPI. ROS Other: All systems not noted in ROS Statement are negative. Past Medical History Past Medical History: Hypertension History of Any Multi-Drug Resistant Organisms: None Reported Past Surgical History: No Surgical Hx Reported Past Psychological History: No Psychological Hx Reported Smoking Status: Never smoker Past Alcohol Use History: None Reported Past Drug Use History: None Reported General Exam - General Exam Comments Initial Comments: General: Alert, in no acute distress Head: atraumatic normocephalic. Eyes PERRL, EOMI intact, mucous membranes moist Respiratory: Lungs clear to auscultation bilaterally Cardiovascular: Heart rate regular rate and rhythm Abdominal: Soft without guarding or rebound Extremities: Normal inspection with full range of motion and normal capillary refill, right hand with subungual hematomas to third and fourth digits. Distal neurovascularly intact. 2+ radial pulses Neuroogic: alert and oriented 3, CN II-XII intact, able to ambulate with steady gait Skin: warm dry and intact with normal color Limitations: no limitations Course Vital Signs 03/11/23 03/11/23 10:47 12:48 Temperature 97.7 F 98.5 F Pulse Rate 70 76 Respiratory 16 16 Rate Blood Pressure 195/105 136/78 O2 Sat by Pulse 100 99 Oximetry Procedures - Procedures Initial comment: Indication performed on the third and fourth digit Medical Decision Making - Medical Decision Making Was pt. sent in by a medical professional or institution (, PA, CAR DUMPER OPERATOR, urgent care, hospital, or shelter...) When possible be specific @ -[No] Did you speak to anyone other than the patient for history (EMS, parent, family, police, friend...)? What history was obtained from this source @ -[No] Did you review nursing and triage notes (agree or disagree)? Why? @ -[I reviewed and agree with nursing and triage notes] Were old charts reviewed (outside hosp., previous admission, EMS record, old EKG, old radiological studies, urgent care reports/EKG's, shelter records)? Report findings @ -[No old charts were reviewed] Differential Diagnosis (chest pain, altered mental status, abdominal pain women, abdominal pain men, vaginal bleeding, weakness, fever, dyspnea, syncope, hea dache, dizziness, GI bleed, back pain, seizure, CVA, palpatations, mental health, musculoskeletal)? @ -[not applicable] EKG interpreted by me (3pts min.). @ -[As above] X-rays interpreted by me (1pt min.). @ Tuft fracture to third and fourth digits CT interpreted by me (1pt min.). @ -[None done] U/S interpreted by me (1pt. min.). @ -[None done] What testing was considered but not performed or refused? (CT, X-rays, U/S, labs)? Why? @ -[None] What meds were considered but not given or refused? Why? @ -[None] Did you discuss the management of the patient with other professionals (professionals i.e. , PA, CAR DUMPER OPERATOR, lab, RT, psych nurse, clinical social work aide, dam attendant, teacher, eeo officer, case loader operator)? Give summary @ -[No] Was smoking cessation discussed for >3mins.? @ -[No] Was critical care preformed (if so, how long)? @ -[No] Were there social determinants of health that impacted care today? How? (Homelessness, low income, unemployed, alcoholism, drug addiction, transportation, low edu. Level, literacy, decrease access to med. care, prison, rehab)? @ -[No] Was there de-escalation of care discussed even if they declined (Discuss DNR or withdrawal of care, Hospice)? DNR status @ -[No] What co-morbidities impacted this encounter? (DM, HTN, Smoking, COPD, CAD, Cancer, CVA, ARF, Chemo, Hep., AIDS, mental health diagnosis, sleep apnea, m orbid obesity)? @ -[None] Was patient admitted / discharged? Hospital course, mention meds given and route, prescriptions, significant lab abnormalities, going to OR and other pertinent info. @ -Discharged. This is a 57-year-old male who presents to the emergency department with right wrist pain.. Patient had a thorough history and physical exam performed while in the emergency department. Physical exam is essentially unremarkable heart rate regular rate and rhythm, lungs clear to auscultation bilaterally, abdomen soft and nontender. Third and fourth digit with subungual hematoma he should had Anything procedure for which she tolerated well. Patient had lab work imaging performed which was essentially negative. I discussed the results in detail with the patient and the patient's Mother who verbalized understanding and all questions were addressed. Patient was given tylenol with symptomatically relief in the emergency department. She'll given a prescription for Keflex Return precautions were discussed at length with recommended close follow-up with PCP in 1-2 days. Patient discharged in stable condition. Case discussed with TONYA Avalos who agrees with plan of care Undiagnosed new problem with uncertain prognosis? @ -[No] Drug Therapy requiring intensive monitoring for toxicity (Heparin, Nitro, Insulin, Cardizem)? @ -[No] Were any procedures done? @ -[No] Diagnosis/symptom? @ -Tuft fracture Acute, or Chronic, or Acute on Chronic? @ -Acute Uncomplicated (without systemic symptoms) or Complicated (systemic symptoms)? @ -Uncomplicated Side effects of treatment? @ -[No] Exacerbation, Progression, or Severe Exacerbation? @ -[No] Poses a threat to life or bodily function? How? (Chest pain, [place], [place], pneumonia, PE, COPD, DKA, ARF, appy, cholecystitis, CVA, Diverticulitis, Homicidal, Suicidal, threat to staff... and all critical care pts) @ -Low lie\kelihood Disposition Clinical Impression: Closed fracture of tuft of distal phalanx of finger Disposition: HOME SELF-CARE Condition: Stable Instructions (If sedation given, give patient instructions): Finger Fracture (ED) Additional Instructions: Please follow-up with Dr. Baldwin, hand specialist sometime this week Please return to the nearest emergency department if symptoms worsen or persist Prescriptions: Cephalexin [Keflex] 500 mg PO Q6HR #40 cap Ibuprofen [Motrin] 800 mg PO Q6HR #30 tab Is patient prescribed a controlled substance at d/c from ED?: No Referrals: None,Stated [REFERRING] - 1-2 days Hodan Baldwin DO [Doctor of Osteopathic Medicine] - 1-2 days Forms: Area PCPs Time of Disposition: 12:07
[2023-03-11] MEDS ORDERED: DIPH,PERTUS(ACELL)TETVAC-LF 0.5 ML VIAL IM ONE (11:07)
[2023-03-11] MEDS ORDERED: IBUPROFEN 800 MG TAB PO STA (11:12)
--- NOTE | 2023-03-11 11:56 | XR ---
EXAMINATION TYPE: XR hand complete RT DATE OF EXAM: 03/11/2023 COMPARISON: None HISTORY: Hand trauma third and fourth digits TECHNIQUE: 3 view right hand FINDINGS: There is a transverse fracture of the tuft of the middle finger distal phalanx. Soft tissue injury is within the distal digit ring finger. On the oblique view there is some subtle lucency with in the tuft of the distal phalanx ring finger. Consider occult fracture not identified on additional projections. Remaining osseous structures appear intact. No radiopaque foreign bodies are evident. Follow up exams can be performed as clinically indicated. IMPRESSION: 1. Transverse fracture tuft of middle finger distal phalanx. 2. Consider possible occult fracture tuft distal phalanx ring finger. 3. Soft tissue injury most notably over the distal ring finger.
[2023-03-11 12:49] VITALS: BP 136/78; PULSE 76; TEMP 98.5
== END 2023-03-11 12:49 | disposition home or self-care (01) ==
LOC: EC 10:36
DX: S62.639A Displaced fracture of distal phalanx of unspecified finger, initial encounter for closed fracture (principal); I10 Essential (primary) hypertension; Z79.899 Other long term (current) drug therapy; Z23 Encounter for immunization; X58.XXXA Exposure to other specified factors, initial encounter
CPT/HCPCS: 90471; 90715; 99283